=== PATIENT | male | born 1980 ===

== ENCOUNTER 2024-06-15 11:16 | Outpatient (AMB) | payer OTHER, SELFPAY ==
--- NOTE | 2024-06-15 11:23 | MHC.PC.OV ---
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 Intake Note: patient here for new patient visit Dental Technology Advisor Required: No Allergies No Known Allergies Allergy (Verified 06/15/24 11:42) Medication List - Last Reconciled 06/15/24 by Sherry Wyman CNP No Known Home Meds Tobacco use date assessed: 06/15/24 Dental Screening Dental Screen Date: 06/15/24 Did you have a dental visit in the last 12 months?: Yes Did you have a dental problem in the last 6 months where you did not have access to dental care?: No Was dental information given to patient?: Patient has dentist HPI HPI Comments History of Present Illness Details 44-year-old male presents for an extended physical exam Prior PCP? - [place], [place] Last office visit/CPE/labs - About 7 years Acute issue(s) - None Medication - None Past Medical History - Balanitis - Diverticulosis Surgical History - None Family History - Mom: Cardiovascular disease - PGF: Diabetes Social History - Nonsmoker. Does not vape. Drinks 2-3 beers monthly. Smokes 2 joints daily - Has been making healthy dietary choices. He does a lot of walking. Generally sleep well Health maintenance - Last eye exam was 3 weeks ago : normal - Last dental visit was 2 weeks ago: had cleaning and wisdom teeth extraction - Last tetanus vaccine was more than 10 years ago; received Tdap vaccine today - Up-to-date on the flu vaccine - Requests dietitian/software reliability engineer referral for weight management. Referred to [facility] dietitian Specialists - [facility] Medical History (Updated 06/15/24 @ 12:03 by Sherry Wyman CNP) Diverticulosis Family History (Updated 06/15/24 @ 11:34 by Kathi Evangelista) Maternal Aunt No problems noted. 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 1. Little interest or pleasure in doing things: not at all 2. Feeling down, depressed, or hopeless: not at all 3. Trouble falling or staying asleep, or sleeping too much: not at all 4. Feeling tired or having little energy: not at all 5. Poor appetite or overeating: several days 6. Feeling bad about yourself - or that you are a failure or have let yourself or your family down: not at all 7. Trouble concentrating on things, such as reading the newspaper or watching television: not at all 8. Moving or speaking so slowly that other people could have noticed. Or the opposite - being so fidgety or restless that you have been moving around a lot more than usual: not at all 9. Thoughts that you would be better off or of hurting yourself in some way: not at all Total score: 1 Depression Screening Interpretation: Negative Depression Screening Done: Yes 56948 - PHQ-9 Billing: Yes Source: Developed by Drs. Mykel Lux, Julia Figueroa, Jacky Limon and colleagues, with an educational bowen from [employer]. Thrive Questionnaire Date Thrive assessed: 06/15/24 I am a: Patient What is your living situation today?: I have a steady place to live Within the past 12 months, did the food you bought not last and you didn't have the money to get more?: I choose not to answer this question Within the past 12 months, did you worry whether your food would run out before you got money to buy more?: I choose not to answer this question Do you have trouble paying for medicines?: I choose not to answer this question Do you have trouble getting transportation to medical appointments?: No Do you have trouble paying your heating and electricity bill?: I choose not to answer this question Do you have trouble taking care of your child, family member or friend?: No Do you have trouble with day-to-day activities such as bathing, preparing meals, shopping, managing finances, etc.?: No Are you currently unemployed and looking for a job?: No Are you interested in more education?: No Please select the resources that you would like help with: None Currently or been in a relationship where the following occur: No concerns reported THRIVE Score: 0 AUDIT C Alcohol Use Questionnaire (AUDIT-C) 1. How often do you have a drink containing alcohol?: Monthly or less 2. How many drinks containing alcohol do you have on a typical day when you are drinking?: 3 or 4 3. How often do you have six or more drinks on one occasion?: Never Total Score: 2 Score Reviewed/Action Taken: Yes HILLARY-7 AMB Questionnaire HILLARY-7 Date HILLARY - 7 assessed: 06/15/24 Feeling nervous, anxious, or on edge: 0 = Not at all Not being able to stop or control worryin = Not at all Worrying too much about different things: 0 = Not at all Trouble relaxin = Not at all Being so restless that it is hard to sit still: 0 = Not at all Becoming easily annoyed or irritable: 0 = Not at all Feeling afraid as if something awful might happen: 0 = Not at all Total HILLARY-7 score (0-4 normal; 5-9 mild; 10-14 moderate; 15-21 severe): 0 Source: Developed by Drs. Mykel Lux, Julia Figueroa, Jacky Limon and colleagues, with an educational bowen from [employer]. HILLARY-7 Assessment Billing HILLARY-7 Assessment Tool: HILLARY-7 Assessment 70803 Review of Systems Const Details: Denies chills, Denies fatigue, Denies fever(s), Denies headache(s) and Denies weakness HEENT Denies change in vision, Denies dizziness, Denies headache(s), Denies hearing loss, Denies nasal congestion, Denies sinus pain, Denies sinus pressure and Denies sore throat Card Denies chest pain, Denies lightheadedness, Denies dyspnea and Denies other (palpitations) Resp Denies cough, Denies dyspnea and Denies wheezing GI Denies abdominal pain, Denies melena, Denies hematochezia, Denies change in bowel habits, Denies dyspepsia and Denies nausea Denies hematuria and Denies dysuria Musc Denies abnormal gait, Denies myalgias, Denies arthralgias, Denies numbness and Denies tingling Skin/Breast Denies rash, Denies unusual bruising and Denies wounds Neuro Denies abnormal gait, Denies dizziness, Denies headache(s), Denies memory loss, Denies numbness, Denies Sensory deficit (Neuro), Denies tingling and Denies weakness Psych Denies anxiety, Denies depression and Denies memory loss Endo Denies cold intolerance, Denies fatigue, Denies heat intolerance, Denies polydipsia and Denies polyuria Burt/Lymph Denies easy bleeding and Denies easy bruising Aller/Immun Denies wheezing Physical exam (Primary Care) Vital Signs: Last Vital Signs Temp 98.8 F 06/15/24 11:30 Pulse 96 06/15/24 11:30 Resp 16 06/15/24 11:30 Pulse Ox 97 06/15/24 11:30 Oxygen Delivery Method Room Air 06/15/24 11:30 BMI result Body Mass Index 32.4 Tobacco/Smoking Status: Tobacco use Status Tobacco use date assessed 06/15/24 06/15/24 11:36 Patient Tobacco Use Status Never used Tobacco 06/15/24 11:36 e-Cigarette/Vaping Use Never Used 06/15/24 11:36 PHQ-9: PHQ-9 Score PHQ-9: Total score 1 06/15/24 12:12 Depression Screening Interpretation: Negative Thrive Assessment: Date of Thrive Assessment Date Thrive assessed 06/15/24 06/15/24 11:26 Currently or been in a relationship where the following occur: No concerns reported Const Other: General: no acute distress, well developed, alert and awake Nutritional Appearance: well nourished Orientation/consciousness: patient oriented x3 HENMT Head: Yes normocephalic and Yes atraumatic Ears: hearing grossly normal bilaterally and TM's normal bilaterally General nose exam: Normal external nose present and Normal nares present Mouth: Normal oral and palatal mucosa present and moist mucous membranes Teeth and gingiva: dentition normal Throat: Yes oropharynx normal Eyes Pupils: Equal, round and reactive pupils present and Pupil accommodation reflex normal EOM: EOMs intact bilaterally Neck Neck: Yes normal visual inspection, Yes no lymphadenopathy and Yes trachea midline Thyroid: Thyroid normal Carotids: no bruits Lymphatic: no lymphadenopathy noted Chest Chest palpation & inspection: normal inspection of the chest Resp Effort & Inspection: normal respiratory effort Auscultation: clear to auscultation bilaterally Cardio Rate: regular rate Rhythm: regular rhythm Heart sounds: S1 normal heart sound present, S2 normal heart sound present, no gallops, no murmurs and no rubs Bruits: no abdominal aortic bruits and no carotid bruits GI Palpation (GI): No Abdominal aortic bruit present, Soft to palpation, nontender, No hepatosplenomegaly present and No Rebound tenderness present Auscultation: normal bowel sounds General: Yes no CVA tenderness Back/Spine/Pelvis Back: no CVA tenderness Cervical Spine: cervical ROM normal and No Cervical spine tenderness Thoracic/Lumbar Spine: thoraco-lumbar ROM normal, No pain with thoraco-lumbar ROM, No thoracic spinal tenderness and No lumbar spinal tenderness Skin General: warm and dry. Normal skin color. Normal skin turgor Lesions: no lesions Rashes: no rashes Trauma: no lacerations or abrasions Wounds: no wounds Nails: normal Neuro General: patient oriented x3, gait normal and CN's II-XI intact bilaterally Cranial nerves: Yes Equal, round and reactive pupils present Cognition (Neuro): normal cognition Gait exam (Neuro): Normal gait present Motor exam (neuro): 5/5 motor strength present throughout Sensory Exam: No Sensory deficit (Neuro) Deep tendon reflexes (DTR's): Right patellar reflex intensity grade: 2+ and Left patellar reflex intensity grade: 2+ Extrem General: Yes normal to inspection, No edema and No calf tenderness Psych Appearance: grossly normal Affect: normal affect Attitude: cooperative Thought process: Normal thought process present Immunizations Boostrix Tdap 2.5 Lf unit-8 mcg-5 Lf/0.5 mL intramuscular syringe Performing Provider: Sherry Wyman CNP Performing Location: [facility] Administered by: Johanna Valdez RN on 06/15/24 12:12 Dose Route Admin Location Dispensed Lot Number Expiration Date NDC Medical Reimbursement Specialist 0.5 mL IM Left Deltoid 0.5 mL [id number] 07/18/26 [id number] Medi[employer] VIS Given Date VIS Provided VIS Publication Date 06/15/24 Single Vaccine 21 Eligibility Eligibility Date Funding Source Not [facility] Eligible 06/15/24 Private Coding Level of Care Code New Pt Level 3 (24292) New Pt Prev Care 40-64y(68639) Diagnoses Normal physical examination, routine Z00.00 Obesity (BMI 30-39.9) E66.9 Vaccine for tetanus toxoid Z23 Laboratory tests ordered as part of a complete physical exam (CPE) Z00.00 Additional Codes HILLARY-7 Assessment Billing - HILLARY-7 Assessment Tool: HILLARY-7 Assessment 97884 ([id number]) PHQ-9 - 38963 - PHQ-9 Billing: Yes ([id number]) Assessment & Plan Assessment & Plan (1) Normal physical examination, routine: Code(s): Z00.00 - Encounter for general adult medical examination without abnormal findings Category: Medical Plan: No significant functional limitation noted. Healthy diet and routine exercise encouraged. Advised to get lab work done and follow-up for telehealth visit in 2-3 weeks for labs review or sooner with symptoms or concerns. Verbalized understanding and agreed with the plan. (2) Obesity (BMI 30-39.9): Code(s): E66.9 - Obesity, unspecified Category: Medical Plan: He currently weighs 232 lb, BMI is 32.4. He generally makes healthy dietary choices. He walks regularly. Healthy diet and routine exercise encouraged. Referred to [facility] dietitian/software reliability engineer. (3) Vaccine for tetanus toxoid: Code(s): Z23 - Encounter for immunization Category: Medical Plan: Administered today. (4) Laboratory tests ordered as part of a complete physical exam (CPE): Code(s): Z00.00 - Encounter for general adult medical examination without abnormal findings Category: Medical Plan: Fasting labs ordered as part of a complete physical exam. Advised to fast for at least 10 hours before getting labs drawn. May drink water Verbalized understanding and agreed with treatment plan. Orders: Orders TDaP Immunization Today Z23 - Encounter for immunization Comprehensive [place]. Panel Fast Today Z00.00 - Encounter for general adult medical examination without abnormal findings UA CC w/rflx Micro + Cult Today Z00.00 - Encounter for general adult medical examination without abnormal findings Complete Blood Count Auto Diff Today Z00.00 - Encounter for general adult medical examination without abnormal findings TSH reflex Free T4 Today Z00.00 - Encounter for general adult medical examination without abnormal findings Microalbumin, Random (w Creat) Today Z00.00 - Encounter for general adult medical examination without abnormal findings PSA, Ultra Sensitive Today Z00.00 - Encounter for general adult medical examination without abnormal findings Lipid Panel Today Z00.00 - Encounter for general adult medical examination without abnormal findings Referrals Nutrition/Dietitian Referral E66.9 - Obesity, unspecified
[2024-06-15 11:30] VITALS: PULSE 96; RESP 16; TEMP 37.1; O2SAT 97; BMI 32.4
== END 2024-06-15 12:06 | disposition home or self-care (01) ==
PROVIDERS: Visit Provider Nurse Practitioner Family
DX: Z00.00 Encounter for general adult medical examination without abnormal findings (principal); E66.9 Obesity, unspecified; Z68.32 Body mass index [BMI] 32.0-32.9, adult; Z23 Encounter for immunization

== ENCOUNTER → 2024-06-15 11:16 | Outpatient (BNVA) | payer OTHER, SELFPAY | PROVIDERS: Visit Provider Nurse Practitioner Family | DX: Z00.00 Encounter for general adult medical examination without abnormal findings (principal); Z23 Encounter for immunization; E66.9 Obesity, unspecified; Z68.32 Body mass index [BMI] 32.0-32.9, adult | CPT/HCPCS: 90471; 90715; 96127 ==

== ENCOUNTER 2024-06-18 13:28 | Outpatient (REF) | payer OTHER, SELFPAY ==
[2024-06-18 15:06] LABS: MANUAL DIFF FLAG NO
[2024-06-18 15:40] LABS: Basophils Percent Auto 0.3 % (0-2); Eosinophils Absolute Auto 0.1 X10*3/uL (0.0-0.4); Eosinophils Percent Auto 1.7 % (0-4); Hematocrit 49.2 % (42.0-52.0); Hemoglobin 16.4 g/dl (14.0-18.0); Imm Gran Abs Auto 0.02 X10*3/uL (0.00-0.03); Imm Gran Pct Auto 0.3 % (0.0-0.4); Lymphocytes Absolute Auto 3.1 X10*3/uL (1.2-4.9); Lymphocytes Percent Auto 41.1 % (20-40); Mean Corpuscular HGB Conc 33.3 g/dl (31.0-36.0); Mean Corpuscular Hemoglobin 27.9 pg (27.0-33.0); Mean Corpuscular Volume 83.7 fL (80.0-98.0); Monocytes Absolute Auto 0.5 X10*3/uL (0.1-1.2); Monocytes Percent Auto 6.3 % (2-11); Neutrophils Absolute Auto 3.8 x10*3/uL (2.0-8.3); Neutrophils Percent Auto 50.3 % (45-73); Platelet Count 221 X10*3/uL (160-400); Red Blood Count 5.88 X10*6/uL (4.60-5.80); White Blood Count 7.6 X10*3/uL (4.8-10.8)
[2024-06-18 17:46] LABS: Appearance Urine Cloudy; Color Urine Yellow; Glucose Urine UA Negative (Negative); Leukocyte Esterase Urine Negative (Negative); Nitrite Urine Negative (Negative); PH 5.5 (5.0-9.0); Specific Gravity - Urine 1.025 (1.005-1.025); UMIC TRIGGER UACC YES; Urine Blood Trace (Negative); Urine Ketones Negative (Negative); Urine Protein Trace mg/dL (Neg-Trace)
[2024-06-18 17:52] LABS: Bacteria Urine None Seen (None Seen); Hyaline Casts Urine 0-2 /LPF (0-2); RBC Urine 0-2 /HPF (0-2); Squamous Epithelial Cell Urine 0-2 /HPF (0-2); WBC Urine 0-5 /HPF (0-5)
[2024-06-18 18:04] LABS: Albumin Level 4.3 g/dL (3.5-5.0); Anion Gap 13 (12-20); Aspartate Amino Transferase 33 U/L (5-37); Bilirubin Total 1.1 mg/dL (0.0-1.0); Blood Urea Nitrogen 13 mg/dL (9-16); Calcium 9.6 mg/dL (8.4-10.2); Carbon Dioxide 27 mmol/L (22-29); Chloride 105 mmol/L (96-108); Cholesterol 221 mg/dL (<200); Estimated Glomerular Filt Rate > 60; Glucose Fasting 193 mg/dL (60-99); HDL Cholesterol 36 mg/dL (>40); LDL Cholesterol Calculated 147 mg/dL (<100); Potassium 3.5 mmol/L (3.3-5.1); Sodium 141 mmol/L (135-145); Total Protein 7.9 g/dL (6.5-8.0); Triglycerides 191 mg/dL (<150)
[2024-06-18 18:05] LABS: Creatinine Urine 244.59 mg/dL; Microalbum/Creatinine Ratio Ur 9.4 ug/mg cr (<30)
[2024-06-18 19:08] LABS: Alanine Aminotransferase 41 U/L (0-40); Alkaline Phosphatase 100 U/L (39-117)
[2024-06-18 23:40] LABS: TSH reflex Free T4 3.89 uIU/mL (0.32-4.0)
[2024-06-24 15:24] LABS: PSA, Ultra Sensitive 0.19 ng/mL
== END 2024-06-18 13:29 | disposition home or self-care (01) ==
LOC: HO.WFDLDS 13:28
PROVIDERS: Visit Provider Nurse Practitioner Family
DX: Z00.00 Encounter for general adult medical examination without abnormal findings (principal); Z12.5 Encounter for screening for malignant neoplasm of prostate
CPT/HCPCS: 36415; 80053; 80061; 81001; 82043; 82570; 84153; 84443; 85025

== ENCOUNTER 2024-06-29 11:50 | Outpatient (AMB) | payer OTHER, SELFPAY ==
--- NOTE | 2024-06-29 10:58 | A.OFFPC_ITS ---
Intake Visit Reasons: 2-3 wks telehealth, labs review Intake Note: pt here for telehealth for lab review Sweatband Maker Required: No Allergies No Known Allergies Allergy (Verified 06/29/24 10:59) Tobacco use date assessed: 06/29/24 Dental Screening Dental Screen Date: 06/29/24 Did you have a dental visit in the last 12 months?: Yes Did you have a dental problem in the last 6 months where you did not have access to dental care?: No Was dental information given to patient?: Patient has dentist HPI HPI Comments History of Present Illness Details 44-year-old male [facility] of recent lab results. He offers no complaints and denies acute symptoms at this time. [facility] Medical History (Updated 06/29/24 @ 12:13 by Sherry Wyman CNP) Diverticulosis Family History (Updated 06/15/24 @ 11:34 by Kathi Evangelista) Maternal Aunt No problems noted. 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 Mykel Lux, Julia Figueroa, Jacky Limon and colleagues, with an educational bowen from [email or web address]. Review of Systems Const Details: Const Denies chills, Denies fatigue, Denies fever(s), Denies headache(s) and Denies w eakness ENT Denies dizziness and Denies headache(s) Card Denies chest pain, Denies lightheadedness, Denies dyspnea and Denies other (Palpitations) Resp Denies cough, Denies dyspnea, Denies wheezing and Denies other ( shortness of breath) GI Denies abdominal pain, Denies melena, Denies hematochezia, Denies change in bowel habits, Denies dyspepsia and Denies nausea Denies hematuria and Denies dysuria Musc Denies abnormal gait, Denies myalgias, Denies arthralgias, Denies numbness and Denies tingling Skin/Breast Denies rash, Denies unusual bruising and Denies wounds Neuro Denies abnormal gait, Denies dizziness, Denies headache(s), Denies memory loss, Denies numbness, Denies Sensory deficit (Neuro), Denies tingling and Denies weakness Psych Denies anxiety, Denies depression, Denies memory loss Endo Denies cold intolerance, Denies fatigue, Denies heat intolerance, Denies polydipsia and Denies polyuria Aller/Immun Denies wheezing Physical exam (Primary Care) Tobacco/Smoking Status: Tobacco use Status Tobacco use date assessed 06/29/24 06/29/24 11:00 Patient Tobacco Use Status Never used Tobacco 06/29/24 11:00 e-Cigarette/Vaping Use Never Used 06/29/24 11:00 Thrive Assessment: Date of Thrive Assessment Date Thrive assessed 06/15/24 06/29/24 11:00 Const Other: Telehealth visit. No physical exam. Telehealth Telehealth Telehealth Platform: Telephone Location of provider rendering services: practice address Location of patient: address on file Patient Identification confirmed using: Name, : Yes Telehealth method: voice only Patient verbally consented to treatment: Yes Patient verbally consented to billing insurance company: Yes Patient informed of any privacy concerns related to visit: Yes Coding Level of Care Code Tele Est Pt Level 3 (37376) Diagnoses Elevated fasting glucose R73.01 Hyperbilirubinemia E80.6 Elevated ALT measurement R74.01 Hyperlipidemia E78.5 Time Spent (min) 15 Assessment & Plan Assessment & Plan (1) Elevated fasting glucose: Code(s): R73.01 - Impaired fasting glucose Category: Medical Plan: Recent fasting glucose is elevated, 193. Advised to fast for 10-12 hours, may drink, and get fasting glucose blood work done next week. Will review results and make changes as needed. Verbalized understanding and agreed with the plan. (2) Hyperbilirubinemia: Code(s): E80.6 - Other disorders of bilirubin metabolism Category: Medical Plan: Recent bilirubin level is slightly elevated, 1.1. Will recheck bilirubin level and make changes as needed. Verbalized understanding and agreed with the plan. (3) Elevated ALT measurement: Code(s): R74.01 - Elevation of levels of liver transaminase levels Category: Medical Plan: Recent ALT level is slightly elevated, 41. Hepatic steatosis is possible. Healthy diet, including, avoid fatty foods encouraged. Will recheck ALT levels and make changes as needed. Verbalized understanding and agreed with treatment plan. (4) Hyperlipidemia: Code(s): E78.5 - Hyperlipidemia, unspecified Category: Medical Plan: Recent triglyceride, total cholesterol, and LDL levels are elevated, 191, 221, and 147 respectively; HDL level is low, 36. Advised to limit foods high in saturated fat and avoid foods high in trans fat. Routine exercise encouraged. Fast for 10-12 hours, drink water only, and get blood work done 2-3 days before next visit. Follow-up for telehealth visit in 2 months. Verbalized understanding and agreed with treatment plan. Orders: Orders Liver Panel 2 Months R74.01 - Elevation of levels of liver transaminase levels Lipid Panel 2 Months E78.5 - Hyperlipidemia, unspecified Bilirubin Total Today E80.6 - Other disorders of bilirubin metabolism Glucose Fasting Today R73.01 - Impaired fasting glucose
== END 2024-06-29 12:50 | disposition home or self-care (01) ==
LOC: HO.HMCFM 11:50
PROVIDERS: Visit Provider Nurse Practitioner Family
DX: R73.01 Impaired fasting glucose (principal); E80.6 Other disorders of bilirubin metabolism; R74.01 Elevation of levels of liver transaminase levels; E78.5 Hyperlipidemia, unspecified

== ENCOUNTER → 2024-06-29 11:50 | Outpatient (BNVA) | payer OTHER, SELFPAY | PROVIDERS: Visit Provider Nurse Practitioner Family ==

== ENCOUNTER 2024-07-02 13:32 | Outpatient (REF) | payer OTHER, SELFPAY ==
[2024-07-02 18:12] LABS: Glucose Fasting 174 mg/dL (60-99)
== END 2024-07-02 13:33 | disposition home or self-care (01) ==
LOC: HO.WFDLDS 13:32
PROVIDERS: Visit Provider Nurse Practitioner Family
DX: R73.01 Impaired fasting glucose (principal); E80.6 Other disorders of bilirubin metabolism
CPT/HCPCS: 36415; 82247; 82947

== ENCOUNTER 2024-08-06 09:20 | Outpatient (REF) | payer OTHER, SELFPAY ==
[2024-08-06 12:02] LABS: Glucose Fasting 379 mg/dL (60-99)
== END 2024-08-06 09:21 | disposition home or self-care (01) ==
LOC: HO.WFDLDS 09:20
PROVIDERS: Visit Provider Nurse Practitioner Family
DX: R73.01 Impaired fasting glucose (principal)
CPT/HCPCS: 36415; 82947

== ENCOUNTER 2024-08-07 09:15 | Outpatient (REF) | payer OTHER, SELFPAY ==
[2024-08-07 11:33] LABS: Estimated Average Glucose 240 mg/dL; Hemoglobin A1C 332.7727 umol/L; Total Hemoglobin (HGBA1C) 3893.2901 umol/L
== END 2024-08-07 09:16 | disposition home or self-care (01) ==
LOC: HO.WFDLDS 09:15
PROVIDERS: Visit Provider Nurse Practitioner Family
DX: R73.01 Impaired fasting glucose (principal)
CPT/HCPCS: 36415; 83036

== ENCOUNTER 2024-08-31 09:15 | Outpatient (REF) | payer OTHER, SELFPAY ==
[2024-08-31 12:12] LABS: Alanine Aminotransferase 27 U/L (0-40); Albumin Level 4.2 g/dL (3.5-5.0); Alkaline Phosphatase 83 U/L (39-117); Aspartate Amino Transferase 33 U/L (5-37); Bilirubin Direct 0.2 mg/dL (0.0-0.5); Bilirubin Total 0.5 mg/dL (0.0-1.0); Cholesterol 198 mg/dL (<200); HDL Cholesterol 32 mg/dL (>40); LDL Cholesterol Calculated 134 mg/dL (<100); Total Protein 7.8 g/dL (6.5-8.0); Triglycerides 161 mg/dL (<150)
== END 2024-08-31 09:16 | disposition home or self-care (01) ==
LOC: HO.WFDLDS 09:15
PROVIDERS: Visit Provider Nurse Practitioner Family
DX: E78.5 Hyperlipidemia, unspecified (principal); R74.01 Elevation of levels of liver transaminase levels
CPT/HCPCS: 36415; 80061; 80076

== ENCOUNTER 2024-09-03 10:07 | Outpatient (AMB) | payer OTHER, SELFPAY ==
--- NOTE | 2024-09-03 10:04 | MHC.PC.OV ---
Intake Visit Reasons: diab, hyperlipidemia, elevated ALT a liver enzyme Intake Note: patient here for Telehealth to follow up on DM, Hyperlipidemia, elevated ALT Sales And Marketing Director Required: No Allergies No Known Allergies Allergy (Verified 09/03/24 10:04) Tobacco use date assessed: 09/03/24 Dental Screening Dental Screen Date: 09/03/24 Did you have a dental visit in the last 12 months?: Yes Did you have a dental problem in the last 6 months where you did not have access to dental care?: No Was dental information given to patient?: Patient has dentist HPI HPI Comments History of Present Illness Details 44-year-old male presents for review of recent lab results. He has been making healthy dietary choices, including low-salt and carbs. He recently started routine exercise. He offers no complaints and denies acute symptoms at this time. [facility] Medical History (Updated 08/07/24 @ 17:01 by Sherry Wyman CNP) Diverticulosis Family History (Updated 06/15/24 @ 11:34 by Kathi Evangelista MA) Maternal Aunt No problems noted. 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 Current occupational exposures/hazards: No Cognitive needs: No Hearing needs: No Vision needs: No Questionnaire Thrive Questionnaire Date Thrive assessed: 08/31/24 I am a: Patient What is your living situation today?: I have a steady place to live Within the past 12 months, did the food you bought not last and you didn't have the money to get more?: I choose not to answer this question Within the past 12 months, did you worry whether your food would run out before you got money to buy more?: I choose not to answer this question Do you have trouble paying for medicines?: I choose not to answer this question Do you have trouble getting transportation to medical appointments?: No Do you have trouble paying your heating and electricity bill?: Yes Do you have trouble taking care of your child, family member or friend?: No Do you have trouble with day-to-day activities such as bathing, preparing meals, shopping, managing finances, etc.?: No Are you currently unemployed and looking for a job?: No Are you interested in more education?: No Please select the resources that you would like help with: Utilities Currently or been in a relationship where the following occur: No concerns reported THRIVE Score: 1 AUDIT C Alcohol Use Questionnaire (AUDIT-C) 1. How often do you have a drink containing alcohol?: Monthly or less 2. How many drinks containing alcohol do you have on a typical day when you are drinking?: 1 or 2 3. How often do you have six or more drinks on one occasion?: Never Total Score: 1 HILLARY-7 AMB Questionnaire HILLARY-7 Date HILLARY - 7 assessed: 06/15/24 Feeling nervous, anxious, or on edge: 0 = Not at all Not being able to stop or control worryin = Not at all Worrying too much about different things: 0 = Not at all Trouble relaxin = Not at all Being so restless that it is hard to sit still: 0 = Not at all Becoming easily annoyed or irritable: 0 = Not at all Feeling afraid as if something awful might happen: 0 = Not at all Total HILLARY-7 score (0-4 normal; 5-9 mild; 10-14 moderate; 15-21 severe): 0 Source: Developed by Drs. Mykel Lux, Julia Figueroa, Jacky Limon and colleagues, with an educational bowen from [employer]. Review of Systems Const Details: Denies chills, Denies fatigue, Denies fever(s), Denies headache(s) and Denies weakness Cardiac Denies chest pain, Denies claudication, Denies leg edema, Denies lightheadedness, Denies palpitations, Denies dyspnea, Denies dyspnea on exertion, Denies orthopnea and Denies other (Loss of consciousness) Resp Denies cough, Denies excessive phlegm production, Denies dyspnea, Denies dyspnea on exertion, Denies snoring and Denies wheezing Physical exam (Primary Care) Tobacco/Smoking Status: Tobacco use Status Tobacco use date assessed 09/03/24 09/03/24 10:07 Patient Tobacco Use Status Never used Tobacco 09/03/24 10:07 e-Cigarette/Vaping Use Never Used 09/03/24 10:07 Thrive Assessment: Date of Thrive Assessment Date Thrive assessed 08/31/24 09/03/24 10:07 Currently or been in a relationship where the following occur: No concerns reported Const Other: Alert and oriented x3. Telehealth Telehealth Telehealth Platform: Telephone Location of provider rendering services: practice address Location of patient: address on file Patient Identification confirmed using: Name, : Yes Telehealth method: voice only Patient verbally consented to treatment: Yes Patient verbally consented to billing insurance company: Yes Patient informed of any privacy concerns related to visit: Yes Coding Level of Care Code Tele Est Pt Level 3 (03043) Diagnoses Hyperlipidemia E78.5 Hyperbilirubinemia E80.6 Elevated ALT measurement R74.01 Time Spent (min) 15 Assessment & Plan Assessment & Plan (1) Hyperlipidemia: Code(s): E78.5 - Hyperlipidemia, unspecified Category: Medical Plan: Recent triglycerides level is slightly elevated, 161 from 191, LDL is slightly elevated, 134 from 147, and total cholesterol is normal, 198. HDL is low, 32. Encouraged to continue to limit foods high in saturated fat and avoid foods high in trans fat. Routine exercise encouraged. Advised to fast for 10-12 hours, may drink water, and perform lipid panel blood work 2-3 days before next visit. Follow-up in 2 months for diabetes, and hyperlipidemia or sooner with symptoms or concerns. Verbalized understanding and agreed with treatment plan. (2) Hyperbilirubinemia: Code(s): E80.6 - Other disorders of bilirubin metabolism Category: Medical Plan: Recent bilirubin level is normal. (3) Elevated ALT measurement: Code(s): R74.01 - Elevation of levels of liver transaminase levels Category: Medical Plan: Recent ALT levels normal. Orders: Orders Lipid Panel 2 Months E78.5 - Hyperlipidemia, unspecified
== END 2024-09-03 11:25 | disposition home or self-care (01) ==
LOC: HO.HMCFM 10:07
PROVIDERS: PCP Nurse Practitioner Family; Visit Provider Nurse Practitioner Family
DX: E78.5 Hyperlipidemia, unspecified (principal); E80.6 Other disorders of bilirubin metabolism; R74.01 Elevation of levels of liver transaminase levels

== ENCOUNTER 2024-11-05 11:17 | Outpatient (REF) | payer OTHER, SELFPAY ==
[2024-11-05 14:36] LABS: Cholesterol 239 mg/dL (<200); HDL Cholesterol 38 mg/dL (>40); LDL Cholesterol Calculated 158 mg/dL (<100); Triglycerides 218 mg/dL (<150)
== END 2024-11-05 11:18 | disposition home or self-care (01) ==
LOC: HO.WFDLDS 11:17
PROVIDERS: Visit Provider Nurse Practitioner Family
DX: E78.5 Hyperlipidemia, unspecified (principal)
CPT/HCPCS: 36415; 80061

== ENCOUNTER 2024-11-06 10:06 | Outpatient (AMB) | payer OTHER, SELFPAY ==
--- NOTE | 2024-11-06 10:09 | MHC.PC.OV ---
Vital Signs 11/06/24 10:14 Height 5 ft 11 in Weight 231 lb 2 oz BMI 32.2 BP 120/78 Blood Pressure Location Lt brachial Position Sitting Respiration 16 Pulse 99 Pulse Source Pulse Oximeter Temp 98.4 F Temp Source Oral Pulse Oximetry (%) 100 Oxygen Delivery Method Room Air Intake Visit Reasons: diabetes and hyperlipidemia Intake Note: patient here for follow up om DM and Hyperlipidemia Section Hand Helper Required: No Allergies No Known Allergies Allergy (Verified 11/06/24 10:21) Medication List - Last Reconciled 11/06/24 by Sherry Wyman CNP blood sugar diagnostic (FreeStyle Lite Strips) POC testing three times daily blood-glucose meter (FreeStyle Lite Meter kit) As directed lancets (FreeStyle Lancets) POC testing three times daily metformin 500 mg PO BIDWMEAL 30 days Tobacco use date assessed: 11/06/24 Dental Screening Dental Screen Date: 11/06/24 Did you have a dental visit in the last 12 months?: Yes Did you have a dental problem in the last 6 months where you did not have access to dental care?: No Was dental information given to patient?: Patient has dentist HPI HPI Comments History of Present Illness Details 44-year-old male presents for diabetes and hyperlipidemia follow-up. He admits to taking metformin as prescribed without adverse reactions. He has not been checking his blood glucose. He notes that he has been consuming less carbs. However, he has been eating significant amount of meat, eggs, and cheese. He walks regularly. He offers no complaints and denies acute symptoms at this time. [facility] Medical History (Updated 08/07/24 @ 17:01 by Sherry Wyman CNP) Diverticulosis Surgical History (Updated 09/05/24 @ 15:40 by Arabella Paulson Dilcia) No pertinent past surgical history Family History (Updated 06/15/24 @ 11:34 by Kathi Evangelista MA) Maternal Aunt No problems noted. 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 1. Little interest or pleasure in doing things: not at all 2. Feeling down, depressed, or hopeless: not at all 3. Trouble falling or staying asleep, or sleeping too much: not at all 4. Feeling tired or having little energy: not at all 5. Poor appetite or overeating: several days 6. Feeling bad about yourself - or that you are a failure or have let yourself or your family down: not at all 7. Trouble concentrating on things, such as reading the newspaper or watching television: not at all 8. Moving or speaking so slowly that other people could have noticed. Or the opposite - being so fidgety or restless that you have been moving around a lot more than usual: not at all 9. Thoughts that you would be better off or of hurting yourself in some way: not at all Total score: 1 Depression Screening Interpretation: Negative Depression Screening Done: Yes Source: Developed by Drs. Mykel Lux, Julia Figueroa, Jacky Limon and colleagues, with an educational bowen from [employer] Thrive Questionnaire Date Thrive assessed: 08/31/24 I am a: Patient What is your living situation today?: I have a steady place to live Within the past 12 months, did the food you bought not last and you didn't have the money to get more?: I choose not to answer this question Within the past 12 months, did you worry whether your food would run out before you got money to buy more?: I choose not to answer this question Do you have trouble paying for medicines?: I choose not to answer this question Do you have trouble getting transportation to medical appointments?: No Do you have trouble paying your heating and electricity bill?: Yes Do you have trouble taking care of your child, family member or friend?: No Do you have trouble with day-to-day activities such as bathing, preparing meals, shopping, managing finances, etc.?: No Are you currently unemployed and looking for a job?: No Are you interested in more education?: No Please select the resources that you would like help with: Utilities Currently or been in a relationship where the following occur: No concerns reported THRIVE Score: 1 HILLARY-7 AMB Questionnaire HILLARY-7 Date HILLARY - 7 assessed: 06/15/24 Source: Developed by Drs. Mykel Lux, Julia Figueroa, Jacky Limon and colleagues, with an educational bowen from [employer] Review of Systems Const Details: Const Denies chills, Denies fatigue, Denies fever(s), Denies headache(s) and Denies weakness ENT Denies dizziness and Denies headache(s) Card Denies chest pain, Denies lightheadedness, Denies dyspnea and Denies other (Palpitations) Resp Denies cough, Denies dyspnea, Denies wheezing and Denies other ( shortness of breath) GI Denies abdominal pain, Denies melena, Denies hematochezia, Denies change in bowel habits, Denies dyspepsia and Denies nausea Denies hematuria and Denies dysuria Musc Denies abnormal gait, Denies myalgias, Denies arthralgias, Denies numbness and Denies tingling Skin/Breast Denies rash, Denies unusual bruising and Denies wounds Neuro Denies abnormal gait, Denies dizziness, Denies headache(s), Denies memory loss, Denies numbness, Denies Sensory deficit (Neuro), Denies tingling and Denies weakness Psych Denies anxiety, Denies depression, Denies memory loss Endo Denies cold intolerance, Denies fatigue, Denies heat intolerance, Denies polydipsia and Denies polyuria Aller/Immun Denies wheezing Physical exam (Primary Care) Vital Signs: Last Vital Signs Temp 98.4 F 11/06/24 10:14 Pulse 99 11/06/24 10:14 Resp 16 11/06/24 10:14 BP 120/78 11/06/24 10:14 Pulse Ox 100 11/06/24 10:14 Oxygen Delivery Method Room Air 11/06/24 10:14 BMI result Body Mass Index 32.2 Tobacco/Smoking Status: Tobacco use Status Tobacco use date assessed 11/06/24 11/06/24 10:18 Patient Tobacco Use Status Never used Tobacco 11/06/24 10:09 e-Cigarette/Vaping Use Never Used 11/06/24 10:09 PHQ-9: PHQ-9 Score PHQ-9: Total score 1 11/06/24 10:09 Depression Screening Interpretation: Negative Thrive Assessment: Date of Thrive Assessment Date Thrive assessed 08/31/24 11/06/24 10:09 Currently or been in a relationship where the following occur: No concerns reported Const Other: General: no acute distress and well developed Nutritional Appearance: well nourished Orientation/consciousness: patient oriented x3 [facility] Head: Yes normocephalic and Yes atraumatic Eyes General: appearance normal, both eyes and all related structures Pupils: Equal, round and reactive pupils present EOM: EOMs intact bilaterally Resp Effort & Inspection: normal respiratory effort Auscultation: clear to auscultation bilaterally Cardio Rate: regular rate Rhythm: regular rhythm Heart sounds: S1 normal heart sound present, S2 normal heart sound present, no gallops, no murmurs and no rubs GI Palpation (GI): No Abdominal aortic bruit present, Soft to palpation, nontender, No hepatosplenomegaly present and No Rebound tenderness present Auscultation: normal bowel sounds General: Yes no CVA tenderness Back/Spine/Pelvis Back: no CVA tenderness Cervical Spine: cervical ROM normal and No Cervical spine tenderness Thoracic/Lumbar Spine: thoraco-lumbar ROM normal, No pain with thoraco-lumbar ROM, No thoracic spinal tenderness and No lumbar spinal tenderness Extrem General: Yes normal to inspection, No edema and No calf tenderness Skin General: warm and dry. Normal skin color. Normal skin turgor Neuro General: patient oriented x3, gait normal and no focal neuro deficit Cranial nerves: Yes Equal, round and reactive pupils present Cognition (Neuro): normal cognition Gait exam (Neuro): Normal gait present Sensory Exam: No Sensory deficit (Neuro) Psych Appearance: grossly normal Affect: normal affect Attitude: cooperative Thought process: Normal thought process present Results AMB Hemoglobin A1c AMB Hemoglobin A1c 7.2 % Last Edit by Kathi Evangelista MA on 11/06/24 10:33 Coding Level of Care Code Est Pt Level 3 (67008) Diagnoses Type 2 diabetes mellitus E11.9 Hyperlipidemia E78.5 Assessment & Plan Assessment & Plan (1) Type 2 diabetes mellitus: Code(s): E11.9 - Type 2 diabetes mellitus without complications Category: Medical Plan: A1c today is 7.2%, slightly above goal of less than 7.0%. Previous A1c was 10%. Continue current treatment regimen. ADA diet and routine exercise encouraged. Encouraged to check his blood sugar 3 times daily, morning, noon, and evening. Follow-up in 3 months or sooner with symptoms or concerns. Verbalized understanding and agreed with the treatment plan. (2) Hyperlipidemia: Code(s): E78.5 - Hyperlipidemia, unspecified Category: Medical Plan: Recent triglyceride level is elevated, 218 from 161, total cholestero is elevated, 239 from 198, LDL is elevated, 158 from 134, HDL is low, 38. LDL goal is less than 100. He has been eating significant amount of meat, eggs, and cheese. Declines statin therapy at this time and notes he will immediately make dietary changes with less saturated and trans fat. Advised to limit foods high in saturated fat and avoid foods high in trans fat. Routine exercise encouraged. Fast for 10-12 hours, may drink water, performed lipid panel blood work 2-3 days before next visit. Follow-up in 3 months. Verbalized understanding and agreed with the plan. Orders: Orders AMB Hemoglobin A1c Today Z13.9 - Encounter for screening, unspecified Lipid Panel 3 Months E11.9 - Type 2 diabetes mellitus without complications, E78.5 - Hyperlipidemia, unspecified
[2024-11-06 10:14] VITALS: BP 120/78; PULSE 99; RESP 16; TEMP 36.9; O2SAT 100; BMI 32.2
== END 2024-11-06 12:04 | disposition home or self-care (01) ==
LOC: HO.HMCFM 10:07
PROVIDERS: PCP Nurse Practitioner Family; Visit Provider Nurse Practitioner Family
DX: E11.9 Type 2 diabetes mellitus without complications (principal); E78.5 Hyperlipidemia, unspecified; Z13.9 Encounter for screening, unspecified

== ENCOUNTER → 2024-11-06 10:06 | Outpatient (BNVA) | payer OTHER, SELFPAY | PROVIDERS: PCP Nurse Practitioner Family; Visit Provider Nurse Practitioner Family | DX: E11.9 Type 2 diabetes mellitus without complications (principal); E78.5 Hyperlipidemia, unspecified | CPT/HCPCS: 83036; 96127 ==

== ENCOUNTER 2025-02-08 10:14 | Outpatient (REF) | payer OTHER, SELFPAY ==
--- OUTSIDE RECORDS SUMMARY | 2025-02-08 10:26 | XMS_ITS | Clinical Summary ---
Author Organization [facility] Address [address] [place] [id number] Phone Care Team Providers Care Animal Ride Manager Name Role Phone Pcp, Unknown Primary Care Provider Unavailabl e Allergies No known active allergies Medications mupirocin (BACTROBAN) 2 % ointment Apply topically 3 (three) times a day. 22 g 4 Active hydrocortisone 1 % cream Apply topically 2 (two) times a day. 30 g 4 Active Immunizations Immunization Administration Dates Next Due INFLUENZA, SPLIT VIRUS, TRIVALENT PF 03/24/2024 Social History Tobacco Use Types Packs/Day Years Used Date Smoking Tobacco: Never Assessed Education Answer Date Recorded Are you interested in more education? Not on dana e 09/22/2023 Are you concerned about learning? Not on file 09/22/2023 No 09/22/2023 No 09/22/2023 Digital Access Answer Date Recorded No 09/22/2023 No 09/22/2023 Reliable internet access at home? Not on file 09/22/2023 Device with a working camera? Not on file Intimate Partner Violence Answer Date R ecorded Are you denied basic needs s uch as food, clothing, or medical care? No 12/18/2023 In the past 12 months have y ou been in a relationship with a person who hurts, threatens, or tries to control you? No 12/18/2023 Are you denied basic needs s uch as food, clothing, or medical care? No 12/18/2023 In the past 12 months have y ou been in a relationship with a person who hurts, threatens, or tries to control you? No 12/18/2023 Sex and Gender Information Value Date Recorded Sex Assigned at Male 12/18/2023 4:57 AM EDT Legal Sex Male 10:16 AM EDT Gender Identity Male 12/18/2023 4:57 AM EDT Sexual Orientation Straight 12/18/2023 4: 57 AM EDT Last Filed Vital Signs Vital Sign Reading Time Taken Comments Blood Pressure 140/98 12/18/2023 4:24 AM EDT Pulse 86 12/18/2023 4:24 AM EDT Temperature 36.4 C (97.5 F) 12/18/2023 4:24 AM EDT Respiratory Rate 18 12/18/2023 4:24 AM EDT Oxygen Saturation 98% 12/18/2023 4:24 AM EDT Inhaled Oxygen Concentration - - Weight 107 kg (236 lb) 12/18/2023 4:24 AM EDT Height 177.8 cm (5' 10 ) 12/18/2023 4:24 AM EDT Body Mass Index 33.86 12/18/2023 4:24 AM EDT Plan of Treatment Health Maintenance Due Date Last Done Comments Adult Td,Tdap Booster 1981 LIPID PANEL 1981 DEPRESSION SCREENING 1993 SMOKING Hx and SMOKELESS TOB ACCO SCREENING 1994 HEPATITIS C SCREENING 1999 HIV ONE-TIME SCREENING (18-6 5 YEARS) 1999 SCREENING FOR DIABETES 2016 COVID-19 VACCINE (2023-2 5 season) 2024 HEPATITIS A VACCINES Aged Out No long er eligible based on patient's age to complete this topic HIB VACCINES Aged Out No longer eligi ble based on patient's age to complete this topic MENINGOCOCCAL VACCINES (ACWY) Aged Out No longer eligible based on patient's age to complete this topic MENINGOCOCCAL VACCINES (B) Aged Out N o longer eligible based on patient's age to complete this topic PNEUMOCOCCAL VACCINES (0-49 years) Aged Out No longer eligible based on patient's age to complete this topic Medical Devices Not on file Insurance [facility] [employer] FAMILY [facility] [employer] FAMILY [facility] [employer] [employer] FAMILY Care Teams Animal Ride Manager Relationship Specialty Start Date End Date Pcp, Unknown PCP - General 12/18/23 Additional Source Comments The information contained in this document represents components of the legal health record. It is not the complete legal health record.[facility]
[2025-02-08 14:43] LABS: Cholesterol 195 mg/dL (<200); HDL Cholesterol 28 mg/dL (>40); Triglycerides 165 mg/dL (<150)
== END 2025-02-08 10:15 | disposition home or self-care (01) ==
LOC: HO.WFDLDS 10:14
PROVIDERS: Visit Provider Nurse Practitioner Family
DX: E78.5 Hyperlipidemia, unspecified (principal); E11.9 Type 2 diabetes mellitus without complications
CPT/HCPCS: 36415; 80061

== ENCOUNTER 2025-02-11 09:48 | Outpatient (AMB) | payer OTHER, SELFPAY ==
--- NOTE | 2025-02-11 09:52 | MHC.PC.OV ---
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 Allergies No Known Allergies Allergy (Verified 02/11/25 10:25) Medication List - Last Reconciled 02/11/25 by Sherry Wyman CNP blood sugar diagnostic (FreeStyle Lite Strips) POC testing three times daily blood-glucose meter (FreeStyle Lite Meter kit) As directed lancets (FreeStyle Lancets) POC testing three times daily metformin 500 mg PO BID Tobacco use date assessed: 02/11/25 Dental Screening Dental Screen Date: 02/11/25 Did you have a dental visit in the last 12 months?: Yes Did you have a dental problem in the last 6 months where you did not have access to dental care?: No Was dental information given to patient?: Patient has dentist HPI HPI Comments History of Present Illness Details 44-year-old male presents for diabetes and hyperlipidemia follow-up. He admits to taking metformin as prescribed without adverse reactions. He notes that he has been making healthy lifestyle choices. He offers no complaints and denies acute symptoms at this time. [facility] Medical History (Updated 08/07/24 @ 17:01 by Sherry Wyman CNP) Diverticulosis Surgical History (Updated 09/05/24 @ 15:40 by ROSIE Dixon) No pertinent past surgical history Family History (Updated 06/15/24 @ 11:34 by Kathi Evangelista MA) Maternal Aunt No problems noted. 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 Current occupational exposures/hazards: No Cognitive needs: No Hearing needs: No Vision needs: No Questionnaire Thrive Questionnaire Date Thrive assessed: 08/31/24 I am a: Patient What is your living situation today?: I have a steady place to live Within the past 12 months, did the food you bought not last and you didn't have the money to get more?: I choose not to answer this question Within the past 12 months, did you worry whether your food would run out before you got money to buy more?: I choose not to answer this question Do you have trouble paying for medicines?: I choose not to answer this question Do you have trouble getting transportation to medical appointments?: No Do you have trouble paying your heating and electricity bill?: Yes Do you have trouble taking care of your child, family member or friend?: No Do you have trouble with day-to-day activities such as bathing, preparing meals, shopping, managing finances, etc.?: No Are you currently unemployed and looking for a job?: No Are you interested in more education?: No Please select the resources that you would like help with: Utilities Currently or been in a relationship where the following occur: No concerns reported THRIVE Score: 1 HILLARY-7 AMB Questionnaire HILLARY-7 Date HILLARY - 7 assessed: 06/15/24 Source: Developed by Drs. Mykel Lux, Julia Figueroa, Jacky Limon and colleagues, with an educational bowen from [employer] Review of Systems Const Details: Const Denies chills, Denies fatigue, Denies fever(s), Denies headache(s) and Denies weakness ENT Denies dizziness and Denies headache(s) Card Denies chest pain, Denies lightheadedness, Denies dyspnea and Denies other (Palpitations) Resp Denies cough, Denies dyspnea, Denies wheezing and Denies other ( shortness of breath) GI Denies abdominal pain, Denies melena, Denies hematochezia, Denies change in bowel habits, Denies dyspepsia and Denies nausea Denies hematuria and Denies dysuria Musc Denies abnormal gait, Denies myalgias, Denies arthralgias, Denies numbness and Denies tingling Skin/Breast Denies rash, Denies unusual bruising and Denies wounds Neuro Denies abnormal gait, Denies dizziness, Denies headache(s), Denies memory loss, Denies numbness, Denies Sensory deficit (Neuro), Denies tingling and Denies weakness Psych Denies anxiety, Denies depression, Denies memory loss Endo Denies cold intolerance, Denies fatigue, Denies heat intolerance, Denies polydipsia and Denies polyuria Aller/Immun Denies wheezing Physical exam (Primary Care) Vital Signs: Last Vital Signs Temp 99.2 F 02/11/25 09:54 Pulse 87 02/11/25 09:54 Resp 16 02/11/25 09:54 BP 117/70 02/11/25 09:54 Pulse Ox 97 02/11/25 09:54 Oxygen Delivery Method Room Air 02/11/25 09:54 BMI result Body Mass Index 32.4 Tobacco/Smoking Status: Tobacco use Status Tobacco use date assessed 02/11/25 02/11/25 09:59 Patient Tobacco Use Status Never used Tobacco 02/11/25 09:53 e-Cigarette/Vaping Use Never Used 02/11/25 09:53 Thrive Assessment: Date of Thrive Assessment Date Thrive assessed 08/31/24 02/11/25 09:53 Currently or been in a relationship where the following occur: No concerns reported Const Other: General: no acute distress and well developed Nutritional Appearance: well nourished Orientation/consciousness: patient oriented x3 HENMT Head: Yes normocephalic and Yes atraumatic Eyes General: appearance normal, both eyes and all related structures Pupils: Equal, round and reactive pupils present EOM: EOMs intact bilaterally Resp Effort & Inspection: normal respiratory effort Auscultation: clear to auscultation bilaterally Cardio Rate: regular rate Rhythm: regular rhythm Heart sounds: S1 normal heart sound present, S2 normal heart sound present, no gallops, no murmurs and no rubs GI Palpation (GI): No Abdominal aortic bruit present, Soft to palpation, nontender, No hepatosplenomegaly present and No Rebound tenderness present Auscultation: normal bowel sounds General: Yes no CVA tenderness Back/Spine/Pelvis Back: no CVA tenderness Cervical Spine: cervical ROM normal and No Cervical spine tenderness Thoracic/Lumbar Spine: thoraco-lumbar ROM normal, No pain with thoraco-lumbar ROM, No thoracic spinal tenderness and No lumbar spinal tenderness Extrem General: Yes normal to inspection, No edema and No calf tenderness Skin General: warm and dry. Normal skin color. Normal skin turgor Neuro General: patient oriented x3, gait normal and no focal neuro deficit Cranial nerves: Yes Equal, round and reactive pupils present Cognition (Neuro): normal cognition Gait exam (Neuro): Normal gait present Sensory Exam: No Sensory deficit (Neuro) Psych Appearance: grossly normal Affect: normal affect Attitude: cooperative Thought process: Normal thought process present Results AMB Hemoglobin A1c AMB Hemoglobin A1c 6.6 % Last Edit by Kathi Evangelista MA on 02/11/25 10:36 Results Reviewed Results Reviewed: Laboratory Last Values Hgb A1c (Clinic) 6.6 % (4.0-6.0) H 02/11/25 10:34 Coding Level of Care Code Est Pt Level 3 (76415) Diagnoses Type 2 diabetes mellitus E11.9 Hyperlipidemia E78.5 Assessment & Plan Assessment & Plan (1) Type 2 diabetes mellitus: Code(s): E11.9 - Type 2 diabetes mellitus without complications Category: Medical Plan: A1c today is 6.6%, within goal of less than 7.0%. Previous A1c was 7.2%. Continue current treatment regimen. ADA diet and routine exercise encouraged. Follow-up in 3 months or sooner with symptoms or concerns. Verbalized understanding and agreed with the plan. (2) Hyperlipidemia: Code(s): E78.5 - Hyperlipidemia, unspecified Category: Medical Plan: Recent triglycerides, total cholesterol, and LDL levels not elevated, 165, 195, and 134; previous levels were 218, 239, and 158 respectively. He will continue to make healthy lifestyle changes versus antilipemic. Advised to limit foods high in saturated fat and avoid foods high in trans fat. Routine exercise encouraged. Fast for 10-12 hours, may drink water, and perform lipid panel blood work 2-3 days before next visit. Follow-up in 3 months. Verbalized understanding and agreed with the plan. Orders: Orders AMB Hemoglobin A1c Today Z13.9 - Encounter for screening, unspecified Lipid Panel 3 Months E78.5 - Hyperlipidemia, unspecified
[2025-02-11 09:54] VITALS: BP 117/70; PULSE 87; RESP 16; TEMP 37.3; O2SAT 97; BMI 32.4
--- OUTSIDE RECORDS SUMMARY | 2025-02-11 10:32 | XMS_ITS | Clinical Summary ---
Author Organization [facility] Address [address] [place] [phone] Phone Care Team Providers Care Distributing Clerk Name Role Phone Pcp, Unknown Primary Care [...] topic Medical Devices Not on file Insurance [employer] [facility] [employer] FAMILY [employer] [employer] Care Teams Distributing Clerk Relationship Specialty Start Date End Date Pcp, Unknown PCP - General 12/18/23 Additional Source Comments The information contained in this document represents components of the legal health record. It is not the complete legal health record.[facility]
== END 2025-02-11 10:33 | disposition home or self-care (01) ==
LOC: HO.HMCFM 09:49
PROVIDERS: PCP Nurse Practitioner Family; Visit Provider Nurse Practitioner Family
DX: E11.9 Type 2 diabetes mellitus without complications (principal); E78.5 Hyperlipidemia, unspecified; Z13.9 Encounter for screening, unspecified

== ENCOUNTER → 2025-02-11 09:48 | Outpatient (BNVA) | payer OTHER, SELFPAY | PROVIDERS: PCP Nurse Practitioner Family; Visit Provider Nurse Practitioner Family | DX: E11.9 Type 2 diabetes mellitus without complications (principal); E78.5 Hyperlipidemia, unspecified | CPT/HCPCS: 83036 ==

== ENCOUNTER 2025-03-27 09:26 | Outpatient (REF) | payer OTHER, SELFPAY ==
[2025-03-27 13:55] LABS: Anion Gap 9 (12-20); Blood Urea Nitrogen 17 mg/dL (9-16); Calcium 9.7 mg/dL (8.4-10.2); Carbon Dioxide 27 mmol/L (22-29); Chloride 111 mmol/L (96-108); Estimated Glomerular Filt Rate > 60; Potassium 3.7 mmol/L (3.3-5.1); Sodium 143 mmol/L (135-145)
== END 2025-03-27 09:27 | disposition home or self-care (01) ==
LOC: HO.HMGCLDS 09:26
PROVIDERS: PCP Nurse Practitioner Family; Visit Provider Physician Assistant Medical
DX: R03.0 Elevated blood-pressure reading, without diagnosis of hypertension (principal); R51.9 Headache, unspecified; Z13.29 Encounter for screening for other suspected endocrine disorder
CPT/HCPCS: 36415; 80048; 84443

== ENCOUNTER 2025-03-27 09:26 | Outpatient (AMB) | payer OTHER, SELFPAY ==
--- NOTE | 2025-03-27 09:28 | MHC.OFFWIV ---
Intake Vital Signs 03/27/25 09:35 Height 5 ft 11 in Weight 226 lb BMI 31.5 BP 158/100 H Blood Pressure Location Lt brachial Position Sitting Pulse 84 Pulse Source Pulse Oximeter Temp 97.7 F Temp Source Oral Pulse Oximetry (%) 98 Oxygen Delivery Method Room Air Intake Visit Reasons: ep headache possible high BP Intake Note: pt presents with headaches on/off for 5 days Patient Tobacco Use Status: Never used Tobacco Allergies No Known Allergies Allergy (Verified 03/27/25 09:36) Do you need a note to return to daycare/school/sports/work: No HPI HPI Comments History of Present Illness Details History of Present Illness - The patient is a 45-year-old male presenting with a severe headache and elevated blood pressure readings. - The headache began on Tuesday and recurred yesterday night, persisting into today. - He states that he has a pressure in the temples and top of the head. - He has no associated auras, tearing, nausea, photophobia, or phonophobia. - Blood pressure readings were 166/108 mmHg and 158/100 mmHg, both taken at a [facility]. - The patient denies any history of hypertension and reports no previous high blood pressure readings during medical visits. - The patient is currently on metformin and has adjusted his diet to reduce sugar and salt intake. - The patient has a history of diabetes mellitus with a recent A1c of 6.6%. - Lifestyle changes include cessation of overnight work shifts, which the patient believes should reduce stress and headaches. - He denies visual changes, CP, SOB, numbness, tingling, leg edema, or calf pain. Physical Exam General: Cooperative, healthy appearing, comfortable, no acute distress and well developed Orientation: Patient oriented x3 Limitations: No limitations Eyes: Appearance normal, both eyes and all related structures. PERRLA, EOMI. Neck: Normal visual inspection and Yes full ROM. No carotid bruits noted. Respiratory: Normal respiratory effort and able to speak in complete sentences. Clear to auscultation bilaterally. Mo w/r/r noted. Cardiovascular: Regular rate and rhythm. Normal S1 and S2. No m/r/g noted. Skin: No rashes or lesions noted Extremities: Normal to inspection. No edema noted. Patient was informed and verbally consented to the use of an ambient scribe for clinic note documentation during this visit. [facility] Medical History (Updated 08/07/24 @ 17:01 by Sherry Wyman CNP) Diverticulosis Surgical History (Updated 09/05/24 @ 15:40 by ROSIE Dixon) No pertinent past surgical history Family History (Updated 06/15/24 @ 11:34 by Kathi Evangelista MA) Maternal Aunt No problems noted. 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 Current occupational exposures/hazards: No Cognitive needs: No Hearing needs: No Vision needs: No Review of Systems Const All systems reviewed & are unremarkable except as noted in HPI and below Physical Exam Vital Signs: Last Vital Signs Temp 97.7 F 03/27/25 09:35 Pulse 84 03/27/25 09:35 BP 158/100 H 03/27/25 09:35 Pulse Ox 98 03/27/25 09:35 Oxygen Delivery Method Room Air 03/27/25 09:35 BMI result Body Mass Index 31.5 Assessment & Plan Assessment & Plan (1) High blood pressure: Code(s): I10 - Essential (primary) hypertension Qualifiers: Hypertension type: primary hypertension Qualified Code(s): I10 - Essential (primary) hypertension Plan Most likely new essential HTN plan - will order labs - check BP daily and record - start amlodipine-HCTZ today and take it daily - low salt diet - 30 mins of daily exercise - needs a f/u for BP check in a month - if BP remains high 150/90, please call the office - if BP is higher than 150/90, then please go to the ER Orders: Orders TSH reflex Free T4 Today I10 - Essential (primary) hypertension Basic Metabolic Panel Today I10 - Essential (primary) hypertension Medications: New miscellaneous medical supply (Blood Pressure Cuff) As directed 1 ea 0RF amiloride-hydrochlorothiazide 5-50 mg 1 tab PO DAILY 90 tabs 0RF 90 days Coding Level of Care Code Est Pt Level 4 (82656) Diagnoses Primary hypertension I10 Hypertension type: primary hypertension
[2025-03-27 09:35] VITALS: BP 158/100; PULSE 84; TEMP 36.5; O2SAT 98; BMI 31.5
--- OUTSIDE RECORDS SUMMARY | 2025-03-27 10:16 | XMS_ITS | Clinical Summary ---
Author Organization [facility] Address [address] [place] [phone] Phone Care Team Providers Care Health Information Internship Name Role Phone Pcp, Unknown Primary Care [...] 5 YEARS) 1999 SCREENING FOR DIABETES 2016 INFLUENZA VACCINE (#1) 2025 03/24/2024 COVID-19 VACCINE ( - 2023-2 5 season) 2025 HEPATITIS A VACCINES Aged Out No long [...] topic Medical Devices Not on file Insurance [facility] [employer] FAMILY [employer] [employer] [employer] [facility] [employer]ILY [employer] FAMILY Care Teams Health Information Internship Relationship Specialty Start Date End Date Pcp, Unknown PCP - General 12/18/23 Additional Source Comments The information contained in this document represents components of the legal health record. It is not the complete legal health record.[facility]
== END 2025-03-27 10:38 | disposition home or self-care (01) ==
PROVIDERS: PCP Nurse Practitioner Family; Visit Provider Physician Assistant Medical
DX: I10 Essential (primary) hypertension (principal)